=== PATIENT | male | born 1950 | race African-American/Black ===

== ENCOUNTER 2022-08-26 00:12 | Emergency (ER) | payer OTHER ==
[2022-08-26 00:20] VITALS: RESP 18; BMI 31.6
[2022-08-26 00:25] VITALS: PULSE 82; TEMP 98.7
[2022-08-26] MEDS ORDERED: cloNIDine HCL 0.1 MG TABLET PO ONE (00:48)
[2022-08-26] MEDS ORDERED: cloNIDine HCL 0.1 MG TABLET ONE (00:49)
[2022-08-26 01:13] VITALS: BP 145/85
== END 2022-08-26 01:25 | disposition home or self-care (01) ==
LOC: FER 00:12
DX: I10 Essential (primary) hypertension (principal)
CPT/HCPCS: 99283-25